=== PATIENT | female | born 1960 | race Caucasian/White ===

== ENCOUNTER 2020-06-24 08:11 | Emergency (ER) | payer OTHER ==
[~2020-06-24] VITALS: Ht 165.1 cm; Wt 129.0 kg
--- NOTE | 2020-06-24 08:48 | PHYS DOC ---
Past Medical History Additional Past Medical Histor: SINUSITIS Additional Past Surgical Histo: SINUS SURGERY Drug Use: None General Adult EDM: Chief Complaint: RIB PAIN HPI: HPI: Patient is a 60 year old female who has had a chronic cough for the last several months which is improved over the last week or so after seeing an workers' compensation commissioner and started on a different antibiotic and allergy shots. Patient was coughing today and felt severe less sided lateral rib pain that took her breath away. Pain was 8 out of 10 at its worst currently it is mild but gets significantly worse with certain movements. Patient says is worse with deep breaths but does not really feel short of breath. Patient denies any fever. Pain is a sharp stabbing pain without significant radiation Review of Systems: Review of Systems: Constitutional: Denies fever or chills. [] Eyes: Denies change in visual acuity. [] HENT: Complains of some sinus drainage Respiratory: Reports cough but no shortness of breath. [] Cardiovascular: Complains of left-sided rib pain but no edema. [] GI: Denies abdominal pain, nausea, vomiting, bloody stools or diarrhea. [] : Denies dysuria. [] Musculoskeletal: Denies back pain or joint pain. [] Integument: Denies rash. [] Neurologic: Denies headache, focal weakness or sensory changes. [] Endocrine: Denies polyuria or polydipsia. [] Lymphatic: Denies swollen glands. [] Psychiatric: Denies depression or anxiety. [] Heart Score: Risk Factors: Risk Factors: DM, Current or recent (<one month) smoker, HTN, HLP, family history of CAD, obesity. Risk Scores: Score 0 - 3: 2.5% MACE over next 6 weeks - Discharge Home Score 4 - 6: 20.3% MACE over next 6 weeks - Admit for Clinical Observation Score 7 - 10: 72.7% MACE over next 6 weeks - Early Invasive Strategies Physical Exam: PE: Constitutional: Well developed, well nourished, no acute distress, non-toxic appearance. [] HENT: Normocephalic, atraumatic, bilateral external ears normal, no trismus, nose normal. [] Eyes: PERRLA, EOMI, conjunctiva normal, no discharge. [] Neck: Normal range of motion, no tenderness, supple, no stridor. [] Cardiovascular:Heart rate regular rhythm, peripheral pulses are intact cap refill is brisk Lungs & Thorax: Diminished breath sounds bilaterally, tenderness to palpate the left lateral ribs, pain with range of motion of the chest wall Abdomen: soft, no tenderness, no masses, no pulsatile masses. [] Skin: Warm, dry, no erythema, no rash. [] Back: No tenderness, no CVA tenderness. [] Extremities: No tenderness, no cyanosis, no clubbing, ROM intact, no edema. [] Neurologic: Alert and oriented X 3, normal motor function, normal sensory function, no focal deficits noted. [] Psychologic: Affect normal, judgement normal, mood normal. [] Current Patient Data: Vital Signs: Vital Signs Date Time Temp Pulse Resp B/P (MAP) Pulse Ox O2 Delivery O2 Flow Rate FiO2 06/24/20 08:35 97.5 108 20 141/85 (103) 98 Room Air 97.5 EKG: EKG: [] Radiology/Procedures: Radiology/Procedures: [][facility] [address] [place] [address] IMAGING REPORT Signed PATIENT: MAT NICHOLSON ACCOUNT: [id number] : 1960 LOCATION: ER AGE: 60 SEX: F EXAM STATUS: REG ER ORD. PHYSICIAN: TRENT CRUZ MD REASON: chronic cough w/ severe left lower lateral rib pain after coughing today PROCEDURE: RIBS LEFT AND PA CHEST RIBS LEFT AND PA CHEST DATE: 06/24/2020 8:45 AM INDICATION: Reason: chronic cough w/ severe left lower lateral rib pain after coughing today / Spl. Instructions: / History: COMPARISON: None available. FINDINGS: Chest: Heart size is within normal limits. No focal consolidations are seen. No evidence for pulmonary edema, pleural effusion, or pneumothorax. Bones: No radiographic evidence for a displaced, left-sided rib fracture is seen. IMPRESSION: No radiographic evidence for left-sided rib fracture. Electronically signed by: Mono Salazar MD (06/24/2020 9:18 AM) [id number] DICTATED and SIGNED BY: MONO SALAZAR MD DATE: 06/24/20 0918 Course & Med Decision Making: Course & Med Decision Making Pertinent Labs and Imaging studies reviewed. (See chart for details) [][facility] [address] [place] [address] IMAGING REPORT Signed PATIENT: MAT NICHOLSON ACCOUNT: [id number] : 1960 LOCATION: ER AGE: 60 SEX: F EXAM STATUS: REG ER ORD. PHYSICIAN: TRENT CRUZ MD REASON: chronic cough w/ severe left lower lateral rib pain after coughing today PROCEDURE: RIBS LEFT AND PA CHEST RIBS LEFT AND PA CHEST DATE: 06/24/2020 8:45 AM INDICATION: Reason: chronic cough w/ severe left lower lateral rib pain after coughing today / Spl. Instructions: / History: COMPARISON: None available. FINDINGS: Chest: Heart size is within normal limits. No focal consolidations are seen. No evidence for pulmonary edema, pleural effusion, or pneumothorax. Bones: No radiographic evidence for a displaced, left-sided rib fracture is seen. IMPRESSION: No radiographic evidence for left-sided rib fracture. Electronically signed by: Mono Salazar MD (06/24/2020 9:18 AM) [id number] DICTATED and SIGNED BY: MONO SALAZAR MD DATE: 06/24/2018 60-year-old female with a chronic cough and then felt a pop in her ribs with coughing this morning. Chest x-ray is negative. Patient no respiratory distress. Patient's heart rate in the 90s on reassessment. Doubt pulmonary embolism. Most likely patient has a nondisplaced rib fracture that we are not seeing or if she pulled a intercostal muscle. Either way she will need to be treated with pain medicines, I instructed patient on taking 10 deep breaths every hour while awake. Return precautions given. Dragon Disclaimer: Mitzy Disclaimer: This electronic medical record was generated, in whole or in part, using a voice recognition dictation system. Departure Departure Impression: Primary Impression: Chest wall pain Disposition: 01 DC HOME SELF CARE/HOMELESS Condition: STABLE Referrals: ROYAL BANKS MD (PCP) 2 to 3 days Patient Instructions: Chest Wall Pain Additional Instructions: EMERGENCY DEPARTMENT GENERAL DISCHARGE INSTRUCTIONS THANK YOU for coming to [facility] Emergency Department (ED) today and trusting us with your care. We trust that you had a positive experience in our Emergency Department. If you wish to speak to the department Management you can contact the news department intern at . YOUR FOLLOW UP INSTRUCTIONS ARE FOLLOWS: Do you have a private doctor? If you do not have a private doctor, please ask for a resource list of physicians or clinics that may be able to assist you with follow up care. The Emergency Physician has interpreted your x-rays. The X-ray specialist will also review them. If there is a change in the findings you will be notified in 48 hours when at all possible. A lab test or lab culture may have been done, your results will be reviewed and you will be notified if you need a change in treatment. ADDITIONAL INSTRUCTIONS AND INFORMATION Your care today has been supervised by a physician who is specially trained in emergency care. Many problems require more than one evaluation for a complete diagnosis and treatment. We recommend that you schedule your follow up appointment as recommended to ensure complete treatment of your illness or injury. If you are unable to obtain follow up care and continue to have a problem, or if your condition worsens we recommend that you return to the ED. We are not able to safely determine your condition over the phone nor are we able to give sound medical advice over the phone. For these safety reasons, if you call for medical advice we will ask you to come to the ED for further evaluation If you have any questions regarding these discharge instructions please call the ED at . SAFETY INFORMATION In the interest of safety, wellness, and injury prevention; we encourage you to wear your seatbelt, if you smoke; quit smoking, and we encourage your family to use protective helmet for bicycling and other sporting events that present an increased risk for head injury. IF YOUR SYMPTOMS WORSEN OR NEW SYMPTOMS DEVELOP, OR YOU HAVE CONCERNS ABOUT YOUR CONDITION; OR IF YOUR CONDITION WORSENS WHILE YOU ARE WAITING FOR YOUR FOLLOW UP APPOINTMENT; EITHER CONTACT YOUR PRIMARY CARE DOCTOR, THE PHYSICIAN WHOSE NAME AND NUMBER YOU WERE GIVEN, OR RETURN TO THE ED IMMEDIATELY. Take 10 deep breaths while awake every hour Scripts Hydrocodone/Apap 5-325 (NORCO 5-325 TABLET) 1 Each Tablet 1-2 EACH PO PRN Q6HRS PRN for PAIN, #15 as needed for pain Prov: TRENT CRUZ MD 06/24/20 TRENT CRUZ MD Jun 24, 2020 08:48
--- NOTE | 2020-06-24 09:21 | RAD ---
RIBS LEFT AND PA CHEST DATE: 06/24/2020 8:45 AM INDICATION: Reason: chronic cough w/ severe left lower lateral rib pain after coughing today / Spl. Instructions: / History: COMPARISON: None available. FINDINGS: Chest: Heart size is within normal limits. No focal consolidations are seen. No evidence for pulmonary edema, pleural effusion, or pneumothorax. Bones: No radiographic evidence for a displaced, left-sided rib fracture is seen. IMPRESSION: No radiographic evidence for left-sided rib fracture. Electronically signed by: Kimo Salazar MD (06/24/2020 9:18 AM) [id number]
[2020-06-24] MEDS ORDERED: HYDR-3164 PO (09:57)
[2020-06-24 10:00] VITALS: BP 140/89
[2020-06-24] MEDS ORDERED: ORPH100T PO (20:43)
== END 2020-06-24 10:00 | disposition home or self-care (01) ==
LOC: ER 08:11
DX: R07.81 Pleurodynia (principal); R05 Cough
CPT/HCPCS: 71101; 99283

== ENCOUNTER 2020-06-24 18:51 | Emergency (ER) | payer OTHER ==
[~2020-06-24] VITALS: Ht 167.6 cm; Wt 136.4 kg
[~2020-06-24 18:51] MED LIST: HYDR-3164 PO
[2020-06-24] MEDS ORDERED: ORPHENADRINE CITRATE 60 MG/2 ML VIAL. IM ONE (19:30)
[2020-06-24] MEDS ORDERED: KETOROLAC 30 MG/ML VIAL. IM ONE (19:30)
[2020-06-24] MEDS ORDERED: DEXAMETHASONE SOD PHOS 20 MG/5 ML VIAL. PO ONE (19:30)
[2020-06-24] MEDS ORDERED: ORPH100T PO (20:43)
--- NOTE | 2020-06-24 20:43 | PHYS DOC ---
Past Medical History Past Medical History: GERD, Other Additional Past Medical Histor: SINUSITIS Past Surgical History: , Other Additional Past Surgical Histo: SINUS SURGERY Smoking Status: Never Smoker Alcohol Use: None Drug Use: None General Adult EDM: Chief Complaint: RIB PAIN HPI: HPI: Patient is a 60 year old female, accompanied by her , who presents to the emergency department with complaints of pain in her left lateral ribs with coughing. Patient reports that she was evaluated here earlier today and had a negative x-ray. She states she was prescribed hydrocodone that is not helping. She reports that the pain is worse with movement and deep breath. Hemoptysis or injury. Patient denies any recent fall. She states this morning when the pain began initially she felt a sharp pop in the area. She denies any fever, sore throat, chest pain, palpitations, dizziness, abdominal pain, or shortness of breath. She currently rates the pain a 10 out of 10 on the pain scale, she denies any alleviating factors, the pain is exacerbated by deep breath, cough, and movement. Review of Systems: Review of Systems: Constitutional: Denies fever or chills. [] Eyes: Denies change in visual acuity. [] HENT: Denies nasal congestion or sore throat. [] Respiratory: See HPI Cardiovascular: Denies chest pain or edema. [] GI: Denies abdominal pain, nausea, vomiting, or diarrhea. [] : Denies dysuria or hematuria. [] Musculoskeletal: See HPI Integument: Denies rash. [] Neurologic: Denies headache, focal weakness or sensory changes. [] Complete ROS is negative unless otherwise stated in the HPI. Heart Score: Risk Factors: Risk Factors: DM, Current or recent (<one month) smoker, HTN, HLP, family history of CAD, obesity. Risk Scores: Score 0 - 3: 2.5% MACE over next 6 weeks - Discharge Home Score 4 - 6: 20.3% MACE over next 6 weeks - Admit for Clinical Observation Score 7 - 10: 72.7% MACE over next 6 weeks - Early Invasive Strategies Current Medications: Current Medications Medications (Trade) Dose Ordered Sig/Alice Start Time Stop Time Status Last Admin Dose Admin Dexamethasone Sodium Phosphate (Decadron) 10 mg 1X ONCE 06/24/20 19:30 06/24/20 19:41 DC 06/24/20 19:46 10 MG Ketorolac Tromethamine (Toradol 30mg Vial) 30 mg 1X ONCE 06/24/20 19:30 06/24/20 19:41 DC 06/24/20 19:47 30 MG Orphenadrine Citrate (Norflex) 60 mg 1X ONCE 06/24/20 19:30 06/24/20 19:41 DC 06/24/20 19:47 60 MG Allergies: Allergies: Allergies Coded Allergies Type Severity Reaction Last Updated Verified No Known Drug Allergies 06/24/20 No Physical Exam: PE: Constitutional: Well developed, well nourished, no acute distress, non-toxic appearance. [] HENT: Normocephalic, atraumatic, bilateral external ears normal, nose normal. [] Eyes: PERRLA, EOMI, conjunctiva normal, no discharge. [] Neck: Normal range of motion, no stridor. [] Cardiovascular:Heart rate regular rhythm Lungs & Thorax: Respirations even and unlabored, no retractions, no respiratory distress, lungs CTA; left lateral rib tenderness to palpation, no subcutaneous emphysema, no crepitus, no bruising Abdomen: soft, no tenderness Skin: Warm, dry, no erythema, no rash. [] Extremities: No cyanosis, ROM intact, no edema. [] Neurologic: Alert and oriented X 3, no focal deficits noted. [] Psychologic: Affect normal, judgement normal, mood normal. [] Current Patient Data: Vital Signs: Vital Signs Date Time Temp Pulse Resp B/P (MAP) Pulse Ox O2 Delivery O2 Flow Rate FiO2 06/24/20 19:18 97.9 106 22 178/92 (120) 95 Room Air 97.9 EKG: EKG: [] Radiology/Procedures: Radiology/Procedures: [] Course & Med Decision Making: Course & Med Decision Making Pertinent Labs and Imaging studies reviewed. (See chart for details) 60-year-old female presented to the emergency department with complaints of continued pain in the left ribs. Patient was seen here this morning and prescribed Lortab. She reported no relief after taking Lortab. She denied any new injury or hemoptysis. The patient was given 30 mg of IM Toradol, 60 mg of IM orphenadrine, and 10 mg of Decadron. She reported feeling better after these medications. Her blood pressure improved to 137/93 after medications, patient's that was 97% on room air. Prescription was written for Norflex. The patient was given an incentive spirometer and encouraged to use the spirometer twice an hour while awake. I encouraged the patient to follow-up with her primary care doctor in 1 to 2 days, return to the ER if symptoms worsen. Patient verbalized an understanding of home care, medications, follow-up, and return to ED instructions and was in agreement with the plan of care. [] Dragon Disclaimer: Dragon Disclaimer: This electronic medical record was generated, in whole or in part, using a voice recognition dictation system. Departure Departure Impression: Primary Impression: Acute thoracic myofascial strain Qualified Codes: S29.019A - Strain of muscle and tendon of unspecified wall of thorax, initial encounter Disposition: 01 DC HOME SELF CARE/HOMELESS Condition: STABLE Referrals: ROYAL BANKS MD (PCP) Patient Instructions: Thoracic Strain, [id number] Additional Instructions: Fill the prescription(s) and use as directed. Use the incentive spirometer provided 2 times an hour while you are awake as instructed. Apply heat or ice for to sore areas as needed for comfort. Activity as tolerated. Follow up with your primary care doctor in 1 to 2 days, return to the ER if symptoms worsen. Scripts Orphenadrine Citrate (ORPHENADRINE CITRATE) 100 Mg Tablet.er 1 TAB PO BID PRN for PAIN for 10 Days, #20 TAB 0 Refills Prov: MAYRA QUEZADA APRN 06/24/20 MAYRA QUEZADA APRN Jun 24, 2020 20:43
[2020-06-24 20:56] VITALS: BP 137/93
== END 2020-06-24 21:00 | disposition home or self-care (01) ==
LOC: ER 18:51
DX: S29.019A Strain of muscle and tendon of unspecified wall of thorax, initial encounter (principal); K21.9 Gastro-esophageal reflux disease without esophagitis; X50.9XXA Other and unspecified overexertion or strenuous movements or postures, initial encounter; Y93.89 Activity, other specified; Y92.89 Other specified places as the place of occurrence of the external cause; Y99.8 Other external cause status
CPT/HCPCS: 96372; 99284; J1100; J1885; J2360